=== PATIENT | female | born 1985 | race Caucasian/White ===

== ENCOUNTER 2017-03-20 12:08 | Inpatient (IN) | payer OTHER ==
[2017-03-20] MEDS: ONDANSETRON 4 MG INJ IV ×2 (12:59→21:04)
[2017-03-20] MEDS: SOD CHLORIDE 0.9% 1,000 ML IV ×3 (13:00→20:00)
[2017-03-20 13:01] LABS: ADD MAN DIFF? NO
[2017-03-20 13:03] LABS: WHITE BLOOD COUNT 10.5 10^3/ul (4.8-10.8)
[2017-03-20 13:03] LABS: BASOPHIL # 0.1 10^3/ul (0.0-0.1); BASOPHILS % 0.6 % (0.0-2.0); EOSINOPHILS # 0.1 10^3/ul (0.0-0.5); EOSINOPHILS % 0.8 % (0.0-7.0); HEMATOCRIT 36.4 % (37.0-47.0); HEMOGLOBIN 12.7 g/dl (12.0-16.0); LYMPHOCYTES % 18.7 % (15.0-51.0); MEAN CORPUSCULAR HEMOGLOBIN 28.9 pg (29.0-33.0); MEAN CORPUSCULAR HGB CONC 34.9 g/dl (32.0-37.0); MEAN CORPUSCULAR VOLUME 82.7 fl (82.0-101.0); MEAN PLATELET VOLUME 11.9 fl (7.4-10.4); MONOCYTE # 0.7 10^3/ul (0.3-0.9); MONOCYTES % 6.9 % (0.0-11.0); NEUTROPHIL # 7.7 10^3/ul (1.6-7.5); NEUTROPHILS % 72.8 % (39.0-77.0); PLATELET COUNT 268 10^3/UL (140-415); RED CELL DISTRIBUTION WIDTH 12.6 % (11.5-14.5)
[2017-03-20 13:13] LABS: ADD UMIC YES; UR ASCORBIC ACID NEGATIVE (NEGATIVE); UR BACTERIA MANY /HPF (NONE SEEN); UR BILIRUBIN (Dip) 1+ mg/dL (NEGATIVE); UR BLOOD (Dip) NEGATIVE (NEGATIVE); UR CLARITY SLIGHTLY CLOUDY (CLEAR); UR COLOR AMBER (YELLOW); UR GLUCOSE (Dip) NEGATIVE (NEGATIVE); UR KETONES (Dip) 2+ mg/dL (NEGATIVE); UR LEUKOCYTE ESTERASE (Dip) TRACE Leu/ul (NEGATIVE); UR MUCUS MANY /HPF (NONE SEEN); UR NITRITE (Dip) NEGATIVE (NEGATIVE); UR RBC 8 /HPF (0-5); UR SPECIFIC GRAVITY (Dip) 1.027 (1.003-1.030); UR SQUAMOUS EPITHELIAL CELL FEW /HPF (FEW); UR TOTAL PROTEIN (Dip) 1+ mg/dl (NEGATIVE); UR UROBILINOGEN (Dip) 2+ mg/dL (NEGATIVE); UR WBC 7 /HPF (0-5)
[2017-03-20] MEDS: DEXTROSE 5%-0.45% NACL 500 ML BAG IV (13:32)
[2017-03-20 13:48] LABS: ANION GAP 21 (8-16); BLOOD UREA NITROGEN 8 mg/dl (7-20); CARBON DIOXIDE 21 mmol/L (21-31); CHLORIDE 105 mmol/L (97-110); CREATININE 0.58 mg/dl (0.44-1.00); GLUCOSE 72 mg/dl (70-220); POTASSIUM 4.2 mmol/L (3.5-5.1); SODIUM 143 mmol/L (135-144)
[2017-03-20] MEDS ORDERED: ACETAMINOPHEN 325 MG TAB PO (14:30)
[2017-03-21] MEDS: SOD CHLORIDE 0.9% 1,000 ML IV ×4 (01:18→12:13)
[2017-03-21] MEDS: ONDANSETRON 4 MG INJ IV ×3 (02:24→21:44)
[2017-03-21] MEDS: CALCIUM CARBONATE 500 MG CHEW TAB PO (05:22)
[2017-03-21] MEDS: FAMOTIDINE 20 MG TAB PO (16:16)
[2017-03-21] MEDS: LACTATED RINGER'S 1,000 ML IV (16:45)
[2017-03-21] MEDS: CEFTRIAXONE 1 GM/50 ML (PMX) 50 ML IVPB (20:19)
[2017-03-22] MEDS: LACTATED RINGER'S 1,000 ML IV ×4 (05:10→11:16)
[2017-03-22] MEDS: ONDANSETRON 4 MG INJ IV ×3 (05:29→18:04)
[2017-03-22 05:39] LABS: ADD MAN DIFF? NO
[2017-03-22 05:44] LABS: BASOPHIL # 0.1 10^3/ul (0.0-0.1); BASOPHILS % 0.6 % (0.0-2.0); EOSINOPHILS # 0.3 10^3/ul (0.0-0.5); EOSINOPHILS % 3.5 % (0.0-7.0); HEMATOCRIT 32.9 % (37.0-47.0); HEMOGLOBIN 11.5 g/dl (12.0-16.0); LYMPHOCYTES # 2.4 10^3/ul (0.8-2.9); LYMPHOCYTES % 27.4 % (15.0-51.0); MEAN CORPUSCULAR HEMOGLOBIN 29.1 pg (29.0-33.0); MEAN CORPUSCULAR VOLUME 83.3 fl (82.0-101.0); MEAN PLATELET VOLUME 12.1 fl (7.4-10.4); MONOCYTE # 0.6 10^3/ul (0.3-0.9); MONOCYTES % 6.4 % (0.0-11.0); NEUTROPHIL # 5.4 10^3/ul (1.6-7.5); NEUTROPHILS % 61.8 % (39.0-77.0); PLATELET COUNT 229 10^3/UL (140-415); RED BLOOD COUNT 3.95 10^6/ul (4.20-5.40)
[2017-03-22 05:44] LABS: WHITE BLOOD COUNT 8.7 10^3/ul (4.8-10.8)
[2017-03-22 06:43] LABS: ALANINE AMINOTRANSFERASE 63 IU/L (13-69); ALBUMIN 3.8 g/dl (3.3-4.9); ALBUMIN/GLOBULIN RATIO 1.11; ALKALINE PHOSPHATASE 65 IU/L (42-121); ANION GAP 14 (8-16); ASPARTATE AMINO TRANSFERASE 29 IU/L (15-46); BILIRUBIN,INDIRECT 0.2 mg/dl (0-1.1); BILIRUBIN,TOTAL 0.2 mg/dl (0.2-1.3); CALCIUM 9.2 mg/dl (8.4-10.2); CARBON DIOXIDE 22 mmol/L (21-31); CHLORIDE 105 mmol/L (97-110); CREATININE 0.55 mg/dl (0.44-1.00); GLUCOSE 76 mg/dl (70-220); POTASSIUM 3.4 mmol/L (3.5-5.1); SODIUM 138 mmol/L (135-144); TOTAL PROTEIN 7.2 g/dl (6.1-8.1)
[2017-03-22 06:49] LABS: BLOOD UREA NITROGEN < 2 mg/dl (7-20)
[2017-03-22] MEDS: POTASSIUM CHLORIDE (SR) 20 MEQ TAB PO (07:30)
[2017-03-22] MEDS: ACETAMINOPHEN 325 MG TAB PO ×2 (07:31→15:45)
[2017-03-22] MEDS: FOLIC ACID 1 MG TAB PO (09:45)
[2017-03-22] MEDS: FAMOTIDINE 20 MG TAB PO ×2 (09:46→22:17)
[2017-03-22] MEDS: FERROUS SULFATE (EC) 325 MG TAB PO ×2 (09:46→21:04)
[2017-03-22] MEDS: SOD CHLORIDE 0.9% 1,000 ML IV (19:39)
[2017-03-22] MEDS: CEFTRIAXONE 1 GM/50 ML (PMX) 50 ML IVPB (21:05)
[2017-03-23] MEDS: SOD CHLORIDE 0.9% 1,000 ML IV ×4 (04:14→22:07)
[2017-03-23] MEDS: ONDANSETRON 4 MG INJ IV ×2 (06:05→14:20)
[2017-03-23] MEDS: FAMOTIDINE 20 MG TAB PO ×2 (09:00→21:26)
[2017-03-23] MEDS: FERROUS SULFATE (EC) 325 MG TAB PO ×2 (09:00→21:26)
[2017-03-23] MEDS: FOLIC ACID 1 MG TAB PO (09:01)
[2017-03-23] MEDS: CEFTRIAXONE 1 GM/50 ML (PMX) 50 ML IVPB (22:03)
[2017-03-24] MEDS: ONDANSETRON 4 MG INJ IV ×2 (04:35→12:53)
[2017-03-24] MEDS: SOD CHLORIDE 0.9% 1,000 ML IV ×2 (07:21→19:30)
[2017-03-24] MEDS: FERROUS SULFATE (EC) 325 MG TAB PO ×2 (08:43→20:04)
[2017-03-24] MEDS: FOLIC ACID 1 MG TAB PO (08:44)
[2017-03-24] MEDS: FAMOTIDINE 20 MG TAB PO ×2 (08:44→18:54)
[2017-03-24] MEDS: ACETAMINOPHEN 325 MG TAB PO (18:54)
[2017-03-24] MEDS: CEFTRIAXONE 1 GM/50 ML (PMX) 50 ML IVPB (20:04)
== END 2017-03-24 21:40 | disposition home or self-care (01) | DRG 781 ==
LOC: PP1 03-22 10:30 → MS1 03-23 20:10 → FTE 12:08 → MS2 14:15
DX: O21.1 Hyperemesis gravidarum with metabolic disturbance (principal); O46.8X1 Other antepartum hemorrhage, first trimester; O99.011 Anemia complicating pregnancy, first trimester; Z3A.10 10 weeks gestation of pregnancy
CPT/HCPCS: 36415; 76801; 80048; 80053; 81001; 84443; 85025; 96374; 96376; 99217; 99285-25